=== PATIENT | male | born 1960 | race Caucasian/White ===

== ENCOUNTER 2017-01-06 14:06 | Emergency (ER) | payer BC, OTHER ==
[2017-01-06] MEDS ORDERED: KETOROLAC TROMETHAMINE 60 MG/2 ML VIAL IM ONE (14:09)
[2017-01-06] MEDS ORDERED: LORazepam 1 MG TABLET PO ONE (14:09)
--- NOTE | 2017-01-06 14:10 | PDOC ---
History of Present Illness - General Chief Complaint: Injury Stated Complaint: LOWER BACK PAIN Time Seen by Provider: 01/06/17 14:08 - History of Present Illness Initial Comments: 01/06/17 14:10 Chief complaint: Low back pain History of present illness: Immediately RENTAL REPRESENTATIVE, the patient injured his back while loading/unloading his car. He has severe pain and spasm of the low back, but no radiation of pain to the legs, and no bowel or bladder dysfunction. He has a history of recurrent back strains in the past, resolving spontaneously, no surgery. He states that he is scheduled to get on a plane for [employer] at 6:30 PM tonight. 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 Review of systems: No other injuries. No head or neck pain. No distal numbness tingling or weakness. No difficulty ambulating Past medical history: Recurrent minor low back strains, elevated cholesterol Social/family history reviewed and noncontributory Physical exam: Alert oriented 3 moderate distress due to back pain and stiffness cooperative Afebrile, vital signs normal Head atraumatic. PERRLA. ENT clear Neck without tenderness or deformity, full range of motion without pain Chest clear without rib cage or chest wall tenderness or deformity CV regular without murmur rub or gallop Abdomen benign LS spine shows loss of normal lumbar lordosis and paravertebral spasm with straightening. There is no point tenderness or deformity and no inflammation of the vertebrae. Straight leg raising negative. No distal sensory or motor deficits. Pulses full and symmetric. Impression: Acute low back strain with muscle spasm, no neurologic deficit Plan: Symptomatic treatment and follow-up if no improvement orthopedist/back specialist. Past History - Past Medical History Allergies/Adverse Reactions: Allergies Allergy/AdvReac Type Severity Reaction Status Date / Time Penicillins Allergy Verified 01/06/17 14:07 Home Medications: Ambulatory Orders Acetaminophen [Tylenol] 325 mg PO 01/06/17 Cyclobenzaprine HCl [Flexeril] 10 mg PO TID #15 tablet 01/06/17 Ketorolac Tromethamine [Toradol] 10 mg PO Q6H #20 tablet 01/06/17 Cardiac Disorders: Yes (CAD) Disorders: Yes (IBS) Hypercholesterolemia: Yes - Surgical History Appendectomy: Yes - Suicide/Smoking/Psychosocial Hx Smoking History: Never smoked Number of Cigarettes Smoked Daily: 0 Hx Alcohol Use: No Substance Use Type: None Medical Decision Making - Medical Decision Making 01/06/17 15:45 Patient much improved after administration of Toradol and Ativan. He is left stiff and more mobile. He is advised to avoid sitting position and to refrain from traveling, but he must travel for his work. Medication prescribed and follow-up recommended. Discharged ambulatory with his to follow-up as directed. *DC/Admit/Observation/Transfer Diagnosis at time of Disposition: Low back strain Qualifiers: Encounter type: initial encounter Qualified Code(s): S39.012A - Strain of muscle, fascia and tendon of lower back, initial encounter - Discharge Dispostion Disposition: HOME Condition at time of disposition: Improved Admit: No - Prescriptions Prescriptions: Cyclobenzaprine HCl [Flexeril] 10 mg PO TID #15 tablet Ketorolac Tromethamine [Toradol] 10 mg PO Q6H #20 tablet - Referrals Referrals: Bert العراقي MD [Staff Physician] - - Patient Instructions Printed Discharge Instructions: DI for Low Back Pain Additional Instructions: Avoid the sitting position. Rest and heat. Medication as directed. See specialist if symptoms worsen or there is no improvement one week.
[2017-01-06 14:17] VITALS: BP 124/77; PULSE 75; TEMP 98.7; BMI 21.5
[2017-01-06] MEDS ORDERED: LORazepam 0.5 MG TABLET ONE (14:24)
[2017-01-06] MEDS ORDERED: KETOROLAC TROMETHAMINE 60 MG/2 ML VIAL ONE (14:27)
== END 2017-01-06 14:42 | disposition home or self-care (01) ==
LOC: FER 14:06
PROC: 3E0233Z Introduction of Anti-inflammatory into Muscle, Percutaneous Approach (ICD-10-PCS; principal; 2017-01-06)
DX: S39.012A Strain of muscle, fascia and tendon of lower back, initial encounter (principal)
CPT/HCPCS: 99281-25

== ENCOUNTER 2020-10-01 09:54 | Emergency (ER) | payer OTHER ==
[2020-10-01] MEDS ORDERED: KETOROLAC TROMETHAMINE 60 MG/2 ML VIAL IM ONE (10:11)
[2020-10-01] MEDS ORDERED: LIDOCAINE 5% TOPICAL PATCH TP ONE (10:11)
[2020-10-01 10:14] VITALS: BP 102/67; PULSE 64; TEMP 97.7; BMI 22.0
[2020-10-01] MEDS ORDERED: KETOROLAC TROMETHAMINE 30 MG/1 ML VIAL ONE (10:15)
[2020-10-01] MEDS ORDERED: LIDOCAINE 5% TOPICAL PATCH ONE (11:16)
[2020-10-01] MEDS ORDERED: LIDOCAINE PATCH REMOVAL MC SCH (22:00)
== END 2020-10-01 11:55 | disposition home or self-care (01) ==
LOC: FER 09:54
PROC: 3E0233Z Introduction of Anti-inflammatory into Muscle, Percutaneous Approach (ICD-10-PCS; principal; 2020-10-01)
DX: M54.5 Low back pain (principal)
CPT/HCPCS: 99284-25

== ENCOUNTER 2021-03-13 10:09 | Emergency (ER) | payer OTHER ==
[2021-03-13 10:24] VITALS: BP 132/72; PULSE 77; TEMP 99; BMI 22.4
[2021-03-13] MEDS ORDERED: KETOROLAC TROMETHAMINE 60 MG/2 ML VIAL IM ONE (10:33)
[2021-03-13] MEDS ORDERED: KETOROLAC TROMETHAMINE 60 MG/2 ML VIAL ONE (10:46)
== END 2021-03-13 11:34 | disposition home or self-care (01) ==
LOC: FER 10:09
PROC: 3E023GC Introduction of Other Therapeutic Substance into Muscle, Percutaneous Approach (ICD-10-PCS; principal; 2021-03-13)
DX: S39.012A Strain of muscle, fascia and tendon of lower back, initial encounter (principal); X50.0XXA Overexertion from strenuous movement or load, initial encounter
CPT/HCPCS: 96372; 99284-25

== ENCOUNTER 2021-12-06 10:50 | Emergency (ER) | payer OTHER ==
[2021-12-06] MEDS ORDERED: LIDOCAINE 5% TOPICAL PATCH TP ONE (11:04)
[2021-12-06 11:10] VITALS: BP 130/76; PULSE 70; RESP 20; TEMP 98.2; BMI 20.9
[2021-12-06] MEDS: IBUPROFEN 400 MG TABLET (FP) PO ONE ×2 (11:32→11:37)
[2021-12-06] MEDS ORDERED: IBUPROFEN 400 MG TABLET (FP) PO ONE (11:32)
[2021-12-06] MEDS ORDERED: LIDOCAINE 5% TOPICAL PATCH ONE (11:33)
[2021-12-06] MEDS ORDERED: KETOROLAC TROMETHAMINE 15 MG/ML VIAL IM ONE (11:48)
[2021-12-06] MEDS ORDERED: KETOROLAC TROMETHAMINE 15 MG/ML VIAL ONE (11:49)
[2021-12-06] MEDS ORDERED: LIDOCAINE PATCH REMOVAL MC SCH (22:00)
== END 2021-12-06 11:55 | disposition home or self-care (01) ==
LOC: FER 10:50
PROC: 3E023GC Introduction of Other Therapeutic Substance into Muscle, Percutaneous Approach (ICD-10-PCS; principal; 2021-12-06)
DX: M54.41 Lumbago with sciatica, right side (principal)
CPT/HCPCS: 96372; 99284-25

== ENCOUNTER 2021-12-16 10:17 | Emergency (ER) | payer OTHER ==
[2021-12-16 10:30] VITALS: BP 120/78; PULSE 63; RESP 20; TEMP 97.5; BMI 20.9
[2021-12-16] MEDS ORDERED: KETOROLAC TROMETHAMINE 30 MG/1 ML VIAL IM ONE (11:19)
[2021-12-16] MEDS ORDERED: KETOROLAC TROMETHAMINE 30 MG/1 ML VIAL ONE (11:23)
== END 2021-12-16 13:07 | disposition home or self-care (01) ==
LOC: FER 10:17
PROC: 3E0233Z Introduction of Anti-inflammatory into Muscle, Percutaneous Approach (ICD-10-PCS; principal; 2021-12-16)
DX: S39.012A Strain of muscle, fascia and tendon of lower back, initial encounter (principal)
CPT/HCPCS: 99283-25

== ENCOUNTER 2022-05-21 21:17 | Inpatient (IN) | payer OTHER ==
[2022-05-21] MEDS ORDERED: ONDANSETRON 4 MG/2 ML VIAL IVPUSH ONE ×2 (21:42→22:28)
[2022-05-21] MEDS ORDERED: SODIUM CHLORIDE 1,000 ML IV STA (21:42)
[2022-05-21] MEDS ORDERED: ONDANSETRON 4 MG/2 ML VIAL ONE ×2 (21:43→22:45)
[2022-05-21 21:59] LABS: HEMATOCRIT 41.6 % (35.4-49); HEMOGLOBIN 14.8 G/dL (11.7-16.9); MCHC 35.5 g/dl (32.0-35.9); MEAN CELL VOLUME 101.5 fl (80-96); PLATELET COUNT 165.2 10^3/uL (134-434); RDW 12.6 % (11.9-15.9); WHITE BLOOD COUNT 9.9 10^3/uL (4.0-10.8)
[2022-05-21 22:05] LABS: ALBUMIN 3.2 g/dl (3.4-5.0); BILIRUBIN,TOTAL 0.9 mg/dl (0.2-1); TOT PROT 6.4 g/dl (6.4-8.2)
[2022-05-21 22:11] LABS: CALCIUM 6.6 mg/dl (8.5-10)
[2022-05-21] MEDS ORDERED: CALCIUM GLUCONATE 10% - 1,000 MG/10 ML VIAL IVPB ONE ×2 (22:12→23:37)
[2022-05-21] MEDS ORDERED: CALCIUM GLUCONATE 10% - 1,000 MG/10 ML VIAL ONE (22:15)
[2022-05-21] MEDS ORDERED: diazePAM CARPU-JECT 10 MG/2 ML DISP.SYRIN ONE (22:45)
[2022-05-21] MEDS ORDERED: diazePAM CARPU-JECT 10 MG/2 ML DISP.SYRIN IVPUSH ONE ×2 (22:46→23:29)
[2022-05-21] MEDS ORDERED: MAGNESIUM SULF 50% (8.12 MEQ/2 ML-1 GM VIAL) IVPB ONE (23:09)
[2022-05-21] MEDS ORDERED: MAGNESIUM SULFATE IN WATER 2 GM/50 ML IVPB IVPB ONE (23:14)
[2022-05-22] MEDS ORDERED: CALCIUM GLUCONATE 10% - 1,000 MG/10 ML VIAL ONE (00:20)
[2022-05-22] MEDS ORDERED: POTASSIUM CHLORIDE TABS 20 MEQ TABLET.ER (FP) PO ONE ×3 (01:09→06:15)
[2022-05-22] MEDS ORDERED: KCL 10 MEQ IVPB 10 MEQ/100 ML INFUS.BAG IVPB SCH (01:15)
[2022-05-22 02:08] VITALS: BMI 21.4
[2022-05-22] MEDS ORDERED: ACETAMINOPHEN 1000 MG/100 ML BAG IVPB PRN (02:26)
[2022-05-22 04:14] LABS: CO2 29 mmol/L (21-32); GLUCOSE,RANDOM 143 mg/dL (74-106)
[2022-05-22 04:15] LABS: BLOOD UREA NITROGEN 18.3 mg/dL (7-18)
[2022-05-22 04:18] LABS: CREATININE 0.8 mg/dL (0.55-1.3)
[2022-05-22 04:44] LABS: ANION GAP 6 MMOL/L (8-16); CALCIUM 6.1 mg/dL (8.5-10.1); CHLORIDE 108 mmol/L (98-107); SODIUM 143 mmol/L (136-145)
[2022-05-22] MEDS ORDERED: CALCIUM GLUCONATE 10% - 1,000 MG/10 ML VIAL IVPB ONE ×8 (04:53→21:00)
[2022-05-22] MEDS ORDERED: CALCIUM CARBONATE SUSPENSION - 1250 MG/5 ML ML PO ONE ×2 (04:57)
[2022-05-22] MEDS ORDERED: CHOLECALCIFEROL (VIT D3 5000 UNITS) 125 MCG TAB PO ONE (04:58)
[2022-05-22] MEDS ORDERED: CALCIUM 500MG/VIT-D 200 UNITS COMBO TABLET (FP) PO ONE (06:53)
[2022-05-22 08:28] LABS: CALCIUM 6.3 mg/dl (8.5-10); MAGNESIUM 1.6 mg/dL (1.8-2.4); PHOSPHOROUS 6.3 mg/dl (2.5-4.9)
[2022-05-22] MEDS ORDERED: CHOLECALCIFEROL (VIT D3) 400 UNIT (10 MCG) TABLET PO SCH (10:00)
[2022-05-22] MEDS ORDERED: CALCIUM CARBONATE 650 MG TABLET PO SCH (10:00)
[2022-05-22 10:08] VITALS: RESP 18
[2022-05-22] MEDS ORDERED: MAGNESIUM 2GM/50ML STERILE WATER IVPB IVPB ONE (10:47)
[2022-05-22] MEDS: ONDANSETRON 4 MG/2 ML VIAL IVPUSH PRN ×2 (12:32→23:53)
[2022-05-22] MEDS: CALCITRIOL 0.25 MCG CAPSULE (FP) PO SCH ×2 (12:40→21:25)
[2022-05-22 14:34] LABS: CALCIUM 6.5 mg/dl (8.5-10); CREATININE 0.9 mg/dl (0.55-1.3); TOT PROT 5.9 g/dl (6.4-8.2)
[2022-05-22] MEDS: CALCIUM CARBONATE 650 MG TABLET PO SCH ×2 (14:43→21:26)
[2022-05-22] MEDS ORDERED: POTASSIUM CHLORIDE ORAL LIQUID 20 MEQ/15 ML PO ONE (14:48)
[2022-05-22 17:28] LABS: ALBUMIN 2.9 g/dl (3.4-5.0); BILIRUBIN,TOTAL 0.7 mg/dl (0.2-1); CALCIUM 6.4 mg/dl (8.5-10); CREATININE 0.9 mg/dl (0.55-1.3); MAGNESIUM 1.9 mg/dL (1.8-2.4); TOT PROT 5.8 g/dl (6.4-8.2)
[2022-05-22] MEDS ORDERED: ATORVASTATIN CA 10 MG TABLET (FP) PO SCH (22:00)
[2022-05-22 23:54] VITALS: BP 126/72; PULSE 80; TEMP 98.9
== END 2022-05-23 00:01 | disposition short-term general hospital (02) | DRG 813 ==
LOC: FER 21:17 → FM/S 05-22 01:05 → OBSVTOIN 05-22 12:24
PROVIDERS: ADMIT Internal Medicine
DX: E89.89 Other postprocedural endocrine and metabolic complications and disorders (principal); E83.51 Hypocalcemia; E87.6 Hypokalemia; I10 Essential (primary) hypertension; I25.10 Atherosclerotic heart disease of native coronary artery without angina pectoris; E78.5 Hyperlipidemia, unspecified; K21.9 Gastro-esophageal reflux disease without esophagitis; R20.2 Paresthesia of skin; Y83.9 Surgical procedure, unspecified as the cause of abnormal reaction of the patient, or of later complication, without mention of misadventure at the time of the procedure
CPT/HCPCS: 0241U-QW; 36415; 80048; 80053; 82306; 82310; 82330; 83735; 83970; 84100; 85027; 93005; 99285-25; G0378